=== PATIENT | female | born 1955 | race Caucasian/White ===

== ENCOUNTER 2022-12-11 10:57 | Emergency (ER) | payer OTHER ==
[~2022-12-11] VITALS: Ht 167.6 cm; Wt 81.6 kg
[~2022-12-11 10:57] MED LIST: AVAPRO75 MG; CRESTOR10 MG; LEVSIN/SL0.125 MG PO; LEVSIN/SL0.125 MG SL; PROTONIX40 MG PO; TOPROL XL50 MG; ZOFRAN8 MG PO
== END 2022-12-11 13:13 | disposition home or self-care (01) ==
LOC: ER 10:57
PROVIDERS: General Practice
DX: K29.70 Gastritis, unspecified, without bleeding (principal); R10.9 Unspecified abdominal pain; R11.10 Vomiting, unspecified; I10 Essential (primary) hypertension